=== PATIENT | female | born 1975 | race African-American/Black ===

== ENCOUNTER 2017-06-10 08:16 | Day surgery (SDC) | payer BC ==
[2017-06-08 11:18] VITALS: BMI 20.9
[2017-06-10] MEDS ORDERED: LIDOCAINE HCL 1%, 10 MG/ML (20ML VIAL) ONE (09:37)
[2017-06-10] MEDS ORDERED: BUPIVACAINE HCL/PF 0.5% (5MG/ML) 10 ML VIAL ONE (09:38)
[2017-06-10] MEDS ORDERED: DEXAMETHASONE SOD PHOSPHATE 4 MG/1 ML VIAL ONE ×2 (09:38→10:39)
[2017-06-10] MEDS ORDERED: MIDAZOLAM HCL 2 MG/2 ML SINGLE DOSE VIAL ONE ×3 (10:18→11:28)
[2017-06-10] MEDS ORDERED: KETOROLAC TROMETHAMINE 30 MG/1 ML VIAL ONE (10:39)
[2017-06-10] MEDS ORDERED: PROPOFOL 20 ML ONE (10:39)
[2017-06-10] MEDS ORDERED: ceFAZolin SODIUM 1 GM VIAL ONE (10:40)
[2017-06-10] MEDS ORDERED: ceFAZolin SODIUM 1 GM VIAL IVPB ONE (10:44)
[2017-06-10] MEDS ORDERED: PROMETHAZINE HCL 25 MG/1 ML VIAL IVPUSH PRN (12:25)
[2017-06-10] MEDS ORDERED: ONDANSETRON 4 MG/2 ML VIAL IVPUSH PRN (12:25)
[2017-06-10] MEDS ORDERED: oxyCODONE HCL 5 MG TABLET PO PRN (12:25)
[2017-06-10 13:16] VITALS: TEMP 98
[2017-06-10 13:26] VITALS: PULSE 70
[2017-06-10 15:37] VITALS: BP 139/70
--- NOTE | 2017-06-14 06:13 | OP ---
DATE OF OPERATION: 06/10/2017 SURGEON: Laxmi Bell DPM SIZE TESTER: Yovani Portillo DPM and Jose Deluna, PGY-3 PREOPERATIVE DIAGNOSES: 1. Bunion deformity, right foot. 2. Hammertoe deformity of 2nd digit through 5th digit, right foot. POSTOPERATIVE DIAGNOSES: 1. Bunion deformity, right foot. 2. Hammertoe deformity of 2nd digit through 5th digit, right foot. PROCEDURE: 1. Right foot Aki bunionectomy. 2. Arthroplasty of proximal interphalangeal joint, 2nd digit through 5th digit, right foot. ANESTHESIA: IV with MAC. HEMOSTASIS: Pneumatic right ankle tourniquet at 250 mmHg. ESTIMATED BLOOD LOSS: Less than 5 mL. MATERIAL: All non-dyed 2-0 Vicryl, 3-0 Vicryl, 4-0 Monocryl, 4-0 nylon sutures. OsteoMed 2.4 x 60 mm partially-threaded cortical screw. INJECTABLE: Preoperative injection of 18 mL of 1:1 mix of 1% lidocaine plain and 0.5% Marcaine plain. Postoperative injection 2 mL of dexamethasone 4 g/mL and 8 mL of 0.5% Marcaine plain mix. COMPLICATIONS: None. CONDITION: Stable. DESCRIPTION OF PROCEDURE: The patient was brought to the operating room and placed supine on the operating table. One gram of Ancef was then administered intravenously for prophylaxis. After adequate IV sedation was obtained, a local infiltrative block was then administered to the right foot utilizing a 1:1 mix of 1% lidocaine plain and 0.5% Marcaine plain. A total of 15 mL was used. The right foot was then prepped and draped in the usual aseptic fashion. Upon exsanguination of the right foot with an Esmarch bandage and placement of padding at the ankle, pneumatic ankle tourniquet was inflated to 250 mmHg. Attention was directed to the right 1st metatarsophalangeal joint where a linear longitudinal incision was made extending from the neck of the 1st metatarsal to the head of the base of the proximal phalanx of the hallux. Care was taken throughout dissection to avoid damage to neurovascular or tendinous structures. The incision was deepened via sharp dissection to the level of the capsule. The capsule was incised in a T-type fashion, and capsular structures were reflected. Using a periosteal elevator, the periosteum over the head of the 1st metatarsal also reflected. Utilizing sharp instrument, a release of the contracture of the lateral structure of the 1st MPJ and base of the proximal phalanx of the hallux was then performed in standard fashion. Attention was directed back to the medial 1st metatarsal head where the medial prominence of the metatarsal head was resected using a sagittal saw. Next, in a moderate-size chevron osteotomy fashion, a sagittal plane V-type osteotomy was made in the metatarsal head with the apex of the V being at the thickest portion of the metatarsal head with a slightly longer plantar arm of the osteotomy. The distal fragment was then shifted laterally until adequate correction of the intermetatarsal angle was noted on fluoroscopy. A K-wire was used to hold the osteotomy temporarily, and a 2.4 x 60 mm OsteoMed screw which was washed in a mix of normal saline with antibiotic solution prior, was placed using standard lag technique to permanently fixate the osteotomy. Using the sagittal saw, the medial shaft was resected, and bur was used to smooth down all remaining prominences. During closure of the capsule, a medial capsulorrhaphy was performed. Fluoroscopy verified the proper placement of hardware as well as correction of the previous bunion deformity. At this time, surgical site was irrigated with copious amount of normal saline solution with antibiotic. Next, 2-0 Vicryl was used to close the capsule; 3-0 Vicryl was used to reapproximate the subcutaneous layers; 4-0 Monocryl was used to reapproximate the skin in subcuticular-suture technique. Attention was now directed to the right 2nd digit where an incision was placed in the dorsal aspect of the digit. The incision was carried to the level of the proximal interphalangeal joint. The extensor tendon was also transected, and the head of the proximal phalanx was resected with oscillating saw. The surgical site was then flushed with copious amount of normal saline solution with antibiotic. The extensor tendon was repaired with 3-0 Vicryl, and 4-0 nylon was used to close the skin in simple-suture technique. This was noted to give great reduction of the right 2nd digit hammer deformity. The same surgical approach was implemented on the right 3rd, 4th, and 5th digit. At this time, tincture of benzoin was applied near the incision site of the 1st metatarsal, and Steri-Strips were applied. Next, 2 mL of dexamethasone 4 g per mL and 8 mL of 0.5% Marcaine plain mix were injected near the surgical site as postoperative injection. The incisions were then dressed with Betadine-soaked Adaptic. A sterile compressive dressing consisting of 4 x 4's, Nathalie, and Fadi bandage were applied. The pneumatic ankle tourniquet was then deflated, and a prompt hyperemic response was noted to all digits of the right foot. The patient tolerated the procedure and the anesthesia well and left the operating room to the recovery room in good condition with vital signs stable and neurovascular status intact. Capillary filling time was less than 3 seconds to all digits of the right foot. PATRICIA Joyce/[id number]
--- NOTE | 2017-06-14 18:40 | PATH ---
Surgical Pathology Report Patient Name: JENNIFER QUINONES [facility]. Rec. #: [id number] /Age/Gender: 1975 (Age: 42) / F Account: [id number] Location: [facility] SURGICAL Taken: 06/10/2017 Received: 06/10/2017 Reported: 06/14/2017 Physicians: Laxmi Bell DPM Specimen(s) Received BONE AND TISSUE RIGHT FOOT Clinical History Bunion and hammertoes second, third, fourth and fifth right Final Diagnosis BONE AND SOFT TISSUE, FOOT, RIGHT, BUNIONECTOMY AND REPAIR: BONE WITH DEGENERATIVE CHANGES. SKIN WITHOUT SIGNIFICANT PATHOLOGIC FINDINGS. Electronically Signed Corina Cuenca M.D. Gross Description Received in formalin labeled "right foot bone and soft tissue," is a 3.0 x 2.5 x 0.4 cm aggregate of abundant irregular fragmented portions of bone. Also received within the same container is a 2.4 x 1.3 cm aggregate of multiple boone, irregular portions of skin. Marketing Mgr sections are submitted in one cassette, following decalcification. 06/13/201706/13/2017
== END 2017-06-10 15:00 | disposition home or self-care (01) ==
LOC: JASU-SURG 08:16
PROVIDERS: ATTEND Podiatrist Foot Surgery
PROC: 0SRP0JZ Replacement of Right Toe Phalangeal Joint with Synthetic Substitute, Open Approach (ICD-10-PCS; principal; 2017-06-10 10:00)
PROC: 0QSN0ZZ Reposition Right Metatarsal, Open Approach (ICD-10-PCS; 2017-06-10 10:00)
DX: M21.611 Bunion of right foot (principal); M20.41 Other hammer toe(s) (acquired), right foot
CPT/HCPCS: 73630-TC-RT; 84703; 88304-TC; 88311-TC; 94760; 97116-GP

== ENCOUNTER 2017-06-24 07:43 | Day surgery (SDC) | payer BC ==
[2017-06-23 13:41] VITALS: BMI 20.9
[2017-06-24] MEDS ORDERED: MIDAZOLAM HCL 2 MG/2 ML SINGLE DOSE VIAL ONE (10:59)
[2017-06-24] MEDS ORDERED: ceFAZolin SODIUM 1 GM VIAL IVPB ONE (11:39)
[2017-06-24] MEDS ORDERED: LIDOCAINE HCL 1%, 10 MG/ML (20ML VIAL) ONE (11:41)
[2017-06-24] MEDS ORDERED: methylPREDNISolone ACET (DEPO) 40 MG/1 ML VIAL ONE (11:41)
[2017-06-24] MEDS ORDERED: BUPIVACAINE HCL/PF 0.5% (5MG/ML) 10 ML VIAL ONE (11:42)
[2017-06-24] MEDS ORDERED: DEXAMETHASONE SOD PHOSPHATE 4 MG/1 ML VIAL ONE (11:43)
[2017-06-24] MEDS ORDERED: BACITRACIN 50,000 UNITS VIAL NR ONE (12:28)
[2017-06-24] MEDS ORDERED: BUPIVACAINE HCL/PF 0.5% (5MG/ML) 10 ML VIAL IJ ONE (12:29)
[2017-06-24] MEDS ORDERED: oxyCODONE HCL 5 MG TABLET PO PRN (12:59)
[2017-06-24] MEDS ORDERED: PROMETHAZINE HCL 25 MG/1 ML VIAL IVPUSH PRN (12:59)
[2017-06-24] MEDS ORDERED: ONDANSETRON 4 MG/2 ML VIAL IVPUSH PRN (12:59)
[2017-06-24] MEDS ORDERED: LACTATED RINGERS SOLUTION 1,000 ML IV SCH (13:00)
[2017-06-24 14:16] VITALS: TEMP 97.6
[2017-06-24 18:56] VITALS: BP 127/79; PULSE 74
--- NOTE | 2017-06-29 15:47 | PATH ---
Surgical Pathology Report Patient Name: JENNIFER QUINONES [facility]. Rec. #: [id number] /Age/Gender: 1975 (Age: 42) / F Account: [id number] Location: [facility] SURGICAL Taken: 06/24/2017 Received: 06/24/2017 Reported: 06/29/2017 Physicians: Laxmi Bell DPM Specimen(s) Received LEFT FOOT BONE Clinical History Second, third, fourth hammertoes left foot, bunion left foot Final Diagnosis BONE, LEFT, BUNIONECTOMY: CARTILAGE-CAPPED BONE WITH NO PATHOLOGIC FINDINGS. Electronically Signed uJdy Damon M.D. Gross Description Received in formalin labeled "left foot bone," are 4 boone, irregular portions of bone ranging from 0.9 x 0.6 x 0.5 cm to 1.5 x 1.5 x 0.4 cm. Hand Quilter sections are submitted in one cassette, following decalcification. 06/27/201706/27/2017
--- NOTE | 2017-07-04 09:33 | OP ---
DATE OF OPERATION: PREOPERATIVE DIAGNOSES: 1. Left foot hallux abductovalgus deformity. 2. Left 2nd hammer toe deformity. 3. Hammer digits left 3rd digit. 4. Left 4th hammer toe. POSTOPERATIVE DIAGNOSES: 1. Left foot hallux abductovalgus deformity. 2. Left 2nd hammer toe deformity. 3. Hammer digits left 3rd digit. 4. Left 4th hammer toe. PROCEDURES: 1. Modified Viveros bunionectomy, left foot. 2. Arthroplasty of the 2nd digit, left foot. 3. Left 3rd digit arthroplasty. 4. Left 4th digit arthroplasty. ANESTHESIA: MAC with local infiltration. HEMOSTASIS: Pneumatic ankle tourniquet at 250 mmHg. ESTIMATED BLOOD LOSS: Minimal. SURGEON: Dr. Portillo HOSPITAL SUPERVISOR: Laxmi Bell DPM and DESCRIPTION OF PROCEDURE: The procedure started with the patient brought to the operating room and placed supine position on the operating room table. Pneumatic ankle tourniquet was applied to the patient's left ankle. MAC sedation was achieved with local infiltrative block used with 1:1 mix of 1% lidocaine plain and 5% Marcaine plain. A total of 20 mL was used. The left foot was then prepped and draped in the usual aseptic manner. Esmarch bandage was applied to exsanguinate the left foot, and tourniquet was inflated to 250 mmHg. Attention was directed to the dorsal aspect of the 1st metatarsal head of the right foot where a linear longitudinal incision was made over the medial aspect of the 1st metatarsal head. The incision was then deepened through subcutaneous tissue using sharp and blunt dissection. Care was taken to identify and retract all neurovascular structures, and all bleeders were cauterized as necessary. At this time, a linear capsulotomy was performed over the dorsal aspect of the 1st metatarsal head. The periosteal and capsular structures were then carefully dissected free of the osseous attachments and reflected medially and laterally exposing the head of the 1st metatarsal head. Using a sagittal bone, the prominent dorsomedial head off and on the 1st metatarsal was resected and pulled from the operative field. At this time, attention was directed to the first interspace, and the lateral contractor present on the proximal phalanx base was released using No. 15 blade. At this time, the operative site was flushed with normal saline solution, and the periosteal and capsular structures were reapproximated using 3-0 Vicryl. The skin was closed using 4-0 nylon. Attention was then directed to the 2nd digit of the left foot where a linear semielliptical incision was made dorsal to the PIPJ. Incision was deepened through the subcutaneous tissue with care being taken to identify and retract all vital neurovascular structures. All bleeders were cauterized and ligated as necessary. At this time, a transverse tenotomy was performed to the proximal phalanx interphalangeal joint of the left 2nd digit. The head of the proximal phalanx was then feed of its capsular and ligamentous attachments. Next, using an oscillating bone saw, the head of the proximal phalanx was resected and passed from the operative site. The wound was then irrigated with copious amounts of sterile saline solution, and the extensor tendon was then reapproximated with 3-0 Vicryl sutures. The skin was reapproximated using 4-0 nylon sutures in simple interrupted fashion. Similar procedures were then performed on the 3rd and 4th digits of the left foot. At this time, the surgical sites were then dressed with Betadine, Adaptic, sterile 4 x 4s, Nathalie, and Fadi. At this time, the tourniquet was deflated, and a prompt hyperemic response was noted to all digits of the left foot. The patient tolerated the procedure and the anesthesia well and left the operating room to PACU in good candidate with vital signs stable and neurovascular status intact to left foot. PATRICIA Joyce/[id number]
== END 2017-06-24 15:30 | disposition home or self-care (01) ==
LOC: JASU-SURG 07:43
PROVIDERS: ATTEND Podiatrist Foot Surgery
PROC: 0QSP0ZZ Reposition Left Metatarsal, Open Approach (ICD-10-PCS; principal; 2017-06-24 09:20)
PROC: 0SRQ0JZ Replacement of Left Toe Phalangeal Joint with Synthetic Substitute, Open Approach (ICD-10-PCS; 2017-06-24 09:20)
DX: M20.42 Other hammer toe(s) (acquired), left foot (principal); M20.12 Hallux valgus (acquired), left foot; M21.612 Bunion of left foot
CPT/HCPCS: 73630-TC-LT; 73630-TC-RT; 84703; 88304-TC; 88311-TC; 94760

== ENCOUNTER 2017-12-21 13:26 | Observation (INO) | payer BC ==
[2017-12-21 13:34] VITALS: BMI 20.9
--- NOTE | 2017-12-21 15:04 | PDOC ---
History of Present Illness - General History Source: Patient Exam Limitations: No Limitations - History of Present Illness Initial Comments: 12/21/17 15:20 The patient is a 42-year-old female, with no past medical history, who was sent to the ED from her PCPs office for right-side head pain, right eye swelling, and dizziness. The patient is normally followed by Dr. Hood, but today she was seen by Dr. Johnson because Sana is on vacation. The patient states that she was cleaning her bathtub 3 weeks ago, lost her footing, and hit the right-side of her head on the wall. Initially, the patient had no symptoms but 4 days ago she developed a right-sided headache and dizziness. She decided to visit the [facility] Emergency Department and had a CT of the orbits and head taken with no contrast; the reports came back normal. The following day, the patient developed right eye swelling. On exam, the patient states that she is experiencing pain with extraocular motion and a low-grade fever. She reports taking Tylenol yesterday with no relief of her symptoms. The patient denies any nausea or vomiting. She denies any blurred vision or diplopia. PCP: Dr. Hood <Lana Tripp - Last Filed: 12/21/17 16:37> - General History Source: Patient Exam Limitations: No Limitations <Jailyn Llamas - Last Filed: 12/21/17 19:32> - General Chief Complaint: Headache Stated Complaint: INJURY Time Seen by Provider: 12/21/17 14:14 Past History <Lana Tripp - Last Filed: 12/21/17 16:37> - Past Medical History Anemia: No Asthma: No Cancer: No Cardiac Disorders: No CVA: No COPD: No CHF: No Dementia: No Diabetes: No GI Disorders: No Disorders: No HTN: No Hypercholesterolemia: No Liver Disease: No Seizures: No Thyroid Disease: No - Reproductive History (#): 6 Para: 0 Therapeutic (s) & number: Yes (1) Spontaneous : 4 - Suicide/Smoking/Psychosocial Hx Smoking History: Never smoked Have you smoked in the past 12 months: Yes Number of Cigarettes Smoked Daily: 4 'Breaking Loose' booklet given: 06/24/17 Hx Alcohol Use: No Drug/Substance Use Hx: No Substance Use Type: None Hx Substance Use Treatment: No <Jailyn Llamas - Last Filed: 12/21/17 19:32> - Past Medical History Allergies/Adverse Reactions: Allergies Allergy/AdvReac Type Severity Reaction Status Date / Time No Known Allergies Allergy Verified 12/21/17 13:34 Home Medications: Ambulatory Orders Ibuprofen [Motrin -] 600 mg PO TID PRN 06/23/17 Review of Systems - Review of Systems Able to Perform ROS?: Yes Comments:: 12/21/17 15:21 GENERAL/CONSTITUTIONAL: (+)fever. No chills. No weakness. HEAD, EYES, EARS, NOSE AND THROAT: (+)right eye swelling, pain with extraoccular motion of her right eye. No change in vision. No ear pain or discharge. No sore throat. CARDIOVASCULAR: No chest pain or shortness of breath. RESPIRATORY: No cough, wheezing, or hemoptysis. GASTROINTESTINAL: No nausea, vomiting, diarrhea or constipation. GENITOURINARY: No dysuria, frequency, or change in urination. MUSCULOSKELETAL: No joint or muscle swelling or pain. No neck or back pain. SKIN: No rash NEUROLOGIC: (+)Headache, dizziness. No vertigo, loss of consciousness, or change in strength/sensation. ENDOCRINE: No increased thirst. No abnormal weight change. HEMATOLOGIC/LYMPHATIC: No anemia, easy bleeding, or history of blood clots. ALLERGIC/IMMUNOLOGIC: No hives or skin allergy. <Lana Tripp - Last Filed: 12/21/17 16:37> *Physical Exam - Vital Signs Last Vital Signs Temp Pulse Resp BP Pulse Ox 98.2 F 75 20 118/71 100 12/21/17 13:28 12/21/17 13:28 12/21/17 13:28 12/21/17 13:28 12/21/17 13:28 - Physical Exam Comments: 12/21/17 15:22 GENERAL: Awake, alert, and fully oriented, in no acute distress HEAD: No signs of trauma EYES: PERRLA, EOMI, sclera anicteric, conjunctiva clear Head:(+)Tenderness over right temporal region. ENT:(+)TMs bilaterally are excluded with wax, right upper eyelid swollen with erythema. Extraocular motions are symmetric, nares patent, oropharynx clear without exudates. Moist mucosa. NECK: Normal ROM, supple, no lymphadenopathy, JVD, or masses LUNGS: Breath sounds equal, clear to auscultation bilaterally. No wheezes, and no crackles HEART: Regular rate and rhythm, normal S1 and S2, no murmurs, rubs or gallops ABDOMEN: Soft, nontender, normoactive bowel sounds. No guarding, no rebound. No masses EXTREMITIES: Normal range of motion, no edema. No clubbing or cyanosis. No cords, erythema, or tenderness NEUROLOGICAL: Alert and oriented x3. 5/5 in all extremities, Cranial nerves 2- 13 intact, speech is clear. SKIN: (+)Right upper eyelid erythema and swelling (see above). Warm, Dry, normal turgor. <Lana Tripp - Last Filed: 12/21/17 16:37> - Vital Signs Last Vital Signs Temp Pulse Resp BP Pulse Ox 98.2 F 75 20 118/71 100 12/21/17 13:28 12/21/17 13:28 12/21/17 13:28 12/21/17 13:28 12/21/17 13:28 <Jailyn Llamas - Last Filed: 12/21/17 19:32> ED Treatment Course - LABORATORY CBC & Chemistry Diagram: 12/21/17 16:00 12/21/17 16:00 - RADIOLOGY Radiology Studies Ordered: Category Date Time Status HEAD CT WITHOUT CONTRAST [CT] Stat CT Scan 12/21/17 14:46 Ordered <Jailyn Llamas - Last Filed: 12/21/17 19:32> *DC/Admit/Observation/Transfer - Attestations Scribe Attestion: 12/21/17 15:23 Documentation prepared by Lana Tripp, acting as medical technicians for Jailyn Llamas MD. <Lana Tripp - Last Filed: 12/21/17 16:37> - Discharge Dispostion Decision to Admit order: Yes <Jailyn Llamas - Last Filed: 12/21/17 19:32> Diagnosis at time of Disposition: Headache - Referrals Referrals: René Hood MD [Primary Care Provider] - - Patient Instructions - Post Discharge Activity
[2017-12-21 16:44] LABS: BASO % 0.7 % (0-2.0); EOS % 1.1 % (0-4.5); HEMATOCRIT 39.6 % (32.4-45.2); LYMPH % 27.8 % (8-40); MCH 29.1 pg (25.7-33.7); MCHC 32.9 g/dl (32.0-36.0); MEAN CELL VOLUME 88.6 fl (80-96); MEAN PLT VOLUME 9.4 fl (7.5-11.1); MONO % 9.9 % (3.8-10.2); NEUT % 60.5 % (42.8-82.8); PLATELET COUNT 190 K/MM3 (134-434); RBC 4.47 M/mm3 (3.60-5.2); RDW 12.2 % (11.6-15.6); WHITE BLOOD COUNT 6.7 K/mm3 (4.0-10.0)
[2017-12-21 17:09] LABS: ALBUMIN 3.3 g/dl (3.4-5.0); ANION GAP 4 (8-16); BLOOD UREA NITROGEN 8 mg/dL (7-18); CALCIUM 8.3 mg/dL (8.5-10.1); CHLORIDE 104 mmol/L (98-107); CO2 29 mmol/L (21-32); CREATININE 0.8 mg/dL (0.55-1.02); GLUCOSE,RANDOM 115 mg/dL (74-106); POTASSIUM 3.4 mmol/L (3.5-5.1); SGOT/AST 13 U/L (15-37); SODIUM 137 mmol/L (136-145)
[2017-12-21 17:22] LABS: ALK PHOS 54 U/L (45-117); BILIRUBIN,TOTAL 0.5 mg/dL (0.2-1.0); SGPT/ALT 18 U/L (12-78); TOT PROT 7.2 g/dl (6.4-8.2)
[2017-12-21] MEDS ORDERED: ACETAMINOPHEN 1000 MG/100 ML VIAL (NON FORMULARY) IVPB ONE (17:26)
[2017-12-21] MEDS ORDERED: SODIUM CHLORIDE 0.9% 1000 ML INFUS.BAG IV ONE (17:26)
[2017-12-21] MEDS ORDERED: CLINDAMYCIN 900 MG PREMIX IVPB 900 MG/50 ML BAG IVPB ONE ×3 (19:02→19:50)
[2017-12-21] MEDS ORDERED: ACETAMINOPHEN INJECTION 100 ML IVPB ONE (19:49)
[2017-12-21 20:12] LABS: COCAINE, UR NEGATIVE ng/ml (CUTOFF=300); URINE AMPHETAMINES NEGATIVE ng/ml (CUTOFF=500); URINE BARBITURATES NEGATIVE ng/ml (CUTOFF=200); URINE BENZODIAZEPINES NEGATIVE ng/ml (CUTOFF=200)
[2017-12-21 20:13] LABS: METHADONE, UR NEGATIVE ng/ml (CUTOFF=300); OPIATES, URI NEGATIVE ng/ml (CUTOFF=300); PHENCYCLIDINE,URINE NEGATIVE ng/ml (CUTOFF=25)
--- NOTE | 2017-12-21 21:14 | HP ---
CHIEF COMPLAINT: eye pain PCP: Dr. Hood HISTORY OF PRESENT ILLNESS: 42 year old female with no significant past medical history presents with 3 day hx of R eye pain. She reports that she hit her R side of the head after a minor fall 3 weeks ago on November 30 where she hit her R side. She denies any subsequent pain until December 17, when she was driving her van and began to feel 7/10 pain in her R lutheran and R orbit. She states that the pain progressed to involve pain when she moved her R eye as well as swelling. She went to [facility] ER the very first day and had a CT head which was negative and patient was discharged only on pain medications. Her pain continued and she noticed a R eyelid droop. Reports occasional lightheadedness. Denies sick contacts. Denies fevers, chills, nausea, vomiting, diarrhea, chest pain, SOB, denies visual changes. Patient's mother is in the room and states that 10 years ago, she had an "eye problem" that she cannot remember. ER course was notable for: (1) K 3.4 (2) CT orbit shows R sided possible partial cavernous sinus thrombosis, no evidence of trauma (3) Recent Travel: none PAST MEDICAL HISTORY: -6 abortions, 1 miscarriage -"eye problem" 10 years ago PAST SURGICAL HISTORY: - section 2013 Social History: Smokin-2 cigs/day many years Alcohol: socially Drugs: none Allergies No Known Allergies Allergy (Verified 12/21/17 13:34) HOME MEDICATIONS: Home Medications Medication Instructions Recorded Ibuprofen [Motrin -] 600 mg PO TID PRN 06/23/17 REVIEW OF SYSTEMS CONSTITUTIONAL: Absent: fever, chills, diaphoresis, generalized weakness, malaise, loss of appetite, weight change HEENT: eye pain, Absent: rhinorrhea, nasal congestion, throat pain, throat swelling, difficulty swallowing, mouth swelling, ear pain, visual changes CARDIOVASCULAR: Absent: chest pain, syncope, palpitations, irregular heart rate, lightheadedness , peripheral edema RESPIRATORY: Absent: cough, shortness of breath, dyspnea with exertion, orthopnea, wheezing, stridor, hemoptysis GASTROINTESTINAL: Absent: abdominal pain, abdominal distension, nausea, vomiting, diarrhea, constipation, melena, hematochezia GENITOURINARY: Absent: dysuria, frequency, urgency, hesitancy, hematuria, flank pain, genital pain MUSCULOSKELETAL: Absent: myalgia, arthralgia, joint swelling, back pain, neck pain SKIN: Absent: rash, itching, pallor HEMATOLOGIC/IMMUNOLOGIC: Absent: easy bleeding, easy bruising, lymphadenopathy, frequent infections ENDOCRINE: Absent: unexplained weight gain, unexplained weight loss, heat intolerance, cold intolerance NEUROLOGIC: Absent: headache, focal weakness or paresthesias, dizziness, unsteady gait, seizure, mental status changes, bladder or bowel incontinence PSYCHIATRIC: Absent: anxiety, depression, suicidal or homicidal ideation, hallucinations. PHYSICAL EXAMINATION Vital Signs - 24 hr 12/21/17 13:28 Temperature 98.2 F Pulse Rate 75 Respiratory 20 Rate Blood Pressure 118/71 O2 Sat by Pulse 100 Oximetry (%) GENERAL: A&Ox3, no acute distress EYES: PERRLA, EOMI ENT: Moist mucus membranes NECK: No JVD LUNGS: CTA, no wheezes HEART: RRR, no murmurs ABDOMEN: Soft, nontender, BS present MUSCULOSKELETAL: No CVA Tenderness EXTREMITIES: 2+ pulses, no edema. NEUROLOGICAL: Cranial nerves II-XII intact. Laboratory Results - last 24 hr 12/21/17 12/21/17 12/21/17 14:59 16:00 16:00 WBC 6.7 RBC 4.47 Hgb 13.0 Hct 39.6 MCV 88.6 MCH 29.1 MCHC 32.9 RDW 12.2 Plt Count 190 MPV 9.4 Neutrophils % 60.5 Lymphocytes % 27.8 D Monocytes % 9.9 Eosinophils % 1.1 D Basophils % 0.7 Nucleated RBC % 0 ESR Sodium 137 Potassium 3.4 L Chloride 104 Carbon Dioxide 29 Anion Gap 4 L BUN 8 Creatinine 0.8 Creat Clearance w eGFR > 60 Random Glucose 115 H Calcium 8.3 L Total Bilirubin 0.5 D AST 13 L ALT 18 Alkaline Phosphatase 54 Total Protein 7.2 Albumin 3.3 L Urine HCG, Qual Negative Opiates Screen Methadone Screen Barbiturate Screen Phencyclidine Screen Ur Amphetamines Screen MDMA (Ecstasy) Screen Benzodiazepines Screen Cocaine Screen U Marijuana (THC) Screen Alcohol, Quantitative 12/21/17 12/21/17 12/21/17 16:00 16:00 19:30 WBC RBC Hgb Hct MCV MCH MCHC RDW Plt Count MPV Neutrophils % Lymphocytes % Monocytes % Eosinophils % Basophils % Nucleated RBC % ESR 16 Sodium Potassium Chloride Carbon Dioxide Anion Gap BUN Creatinine Creat Clearance w eGFR Random Glucose Calcium Total Bilirubin AST ALT Alkaline Phosphatase Total Protein Albumin Urine HCG, Qual Opiates Screen Negative Methadone Screen Negative Barbiturate Screen Negative Phencyclidine Screen Negative Ur Amphetamines Screen Negative MDMA (Ecstasy) Screen Negative Benzodiazepines Screen Negative Cocaine Screen Negative U Marijuana (THC) Screen Positive Alcohol, Quantitative < 5.0 ASSESSMENT/PLAN: 42 year old female with no significant past medical history presents to the hospital for R sided facial pain, R eye pain and headache and is admitted for observation #R Sided Face/Eye Pain: unlikely orbital cellulitis, but CT orbit suggested possible R sided cavernous sinus thrombosis, small amount of fluid in ethmoid air cells, mild R maxillary and minimal R sphenoid mucosal thickening seen. -CT head negative for hemorrhage or acute pathology, but CT orbit as above. -neuro consult appreciated Dr. Vasquez -MRI brain and orbit ordered -ESR 16, normal -tox screen positive for marijuana -tylenol for pain -monitor vitals #Hypokalemia: patient's potassium 3.4 -give 1 Kdur 40 -recheck BMP in AM #FEN NS @ 100cc/hr 1 bag Replete potassium Regular diet #Prophylaxis -early ambulation #Disposition Admit medsurg obs Visit type - Emergency Visit Emergency Visit: Yes Care time: The patient presented to the Emergency Department on the above date and was hospitalized for further evaluation of their emergent condition. - New Patient This patient is new to me today: Yes Date on this admission: 12/21/17 - Critical Care Critical Care patient: No Hospitalist Screening - Colonoscopy Questionnaire Colonoscopy Questionnaire: Colonoscopy Questionnaire - Patient: 50 - 75 years old and never had a screening colonoscopy: Unknown History of colon or rectal polyps, or CA: Unknown History of IBD, Crohn's disease or UC: Unknown History of abdominal radiation therapy as a child: Unknown - Relative: 1 with colon or rectal CA, or polyps at age 60 or younger: Unknown Colon or rectal CA diagnosed at age 45 or younger: Unknown Multiple relatives with colon or rectal CA: Unknown - Outcome: Screening Result: Negative Screen
[2017-12-21] MEDS ORDERED: POTASSIUM CHLORIDE TABS 20 MEQ TABLET.ER (FP) PO ONE (21:58)
--- NOTE | 2017-12-21 22:10 | PN ---
Teaching Attending Note Name of Resident: Mayco Roberts ATTENDING PHYSICIAN STATEMENT I saw and evaluated the patient. Chart, data, imaging reviewed. I reviewed the resident's note and discussed the case with the resident. I agree with the resident's findings and plan as documented. SUBJECTIVE: 42 year old woman with no significant past medical history c/o right sided headache and right sided eye pain for 4 days. She says that 3 weeks ago she bumped her right side of head. Immediately after felt no pain or dizziness. Denied any recent nausea or vomiting. Pt evaluated in [facility] ER and had head CT wnl. Denied any fevers or any other trauma to head. OBJECTIVE: Last Vital Signs Temp Pulse Resp BP Pulse Ox 98.2 F 75 20 118/71 100 12/21/17 13:28 12/21/17 13:28 12/21/17 13:28 12/21/17 13:28 12/21/17 13:28 general- nad, aaox3 heent- cranial nerves 3-12 intact grossly, no facial tenderness neck -no jvd, supple, no masses cv-s1+s2+rrr chest - cta b/l skin -no rashes appreciated Abnormal Lab Results 12/21/17 16:00 Potassium 3.4 L Anion Gap 4 L Random Glucose 115 H Calcium 8.3 L AST 13 L Albumin 3.[address] reviewed -no acute bleed or infarct ASSESSMENT AND PLAN: #Headache- no focal neurological symptoms. No evidence of any infections. Head CT with no acute findings but will r/o cavernous thombosis with MRI. -observation -EKG -tylenol po prn for pain -zofran iv prn for nausea/vomiting -neurology evaluation -heparin sc for dvt ppx
[2017-12-22 07:32] LABS: HEMATOCRIT 34.2 % (32.4-45.2); HEMOGLOBIN 11.5 GM/dL (10.7-15.3); MCH 29.7 pg (25.7-33.7); MCHC 33.6 g/dl (32.0-36.0); MEAN CELL VOLUME 88.4 fl (80-96); PLATELET COUNT 186 K/MM3 (134-434); RBC 3.87 M/mm3 (3.60-5.2); RDW 12.1 % (11.6-15.6); WHITE BLOOD COUNT 4.5 K/mm3 (4.0-10.0)
[2017-12-22 07:57] LABS: ANION GAP 5 (8-16); CALCIUM 7.9 mg/dL (8.5-10.1); CHLORIDE 108 mmol/L (98-107); CO2 27 mmol/L (21-32); GLUCOSE,RANDOM 95 mg/dL (74-106); MAGNESIUM 2.3 mg/dL (1.8-2.4); SODIUM 140 mmol/L (136-145)
[2017-12-22 07:58] LABS: CREATININE 0.7 mg/dL (0.55-1.02); PHOSPHOROUS 3.4 mg/dL (2.5-4.9)
[2017-12-22 08:00] LABS: BLOOD UREA NITROGEN 5 mg/dL (7-18)
[2017-12-22] MEDS ORDERED: ACETAMINOPHEN 325 MG TABLET (FP) ONE (13:22)
[2017-12-22] MEDS: ACETAMINOPHEN 325 MG TABLET (FP) PO PRN (13:24)
--- NOTE | 2017-12-22 15:54 | PN ---
Teaching Attending Note Name of Resident: Joy Agarwal ATTENDING PHYSICIAN STATEMENT I saw and evaluated the patient. I reviewed the resident's note and discussed the case with the resident. I agree with the resident's findings and plan as documented. SUBJECTIVE:continues to have R sided FLOREZ. it is continous with alleviating or exacerbating factors. some eye discomfort when looking to the R in the same eye. states shes had these symptoms from hitting her head earlier this month. noted some swelling and erythema to the eye yesterday which has now resolved. denies CP, SOB, fever, chills, blurred vision, photophobia, halo sensation. OBJECTIVE: Last Vital Signs Temp Pulse Resp BP Pulse Ox 97.7 F 76 18 101/59 100 12/22/17 05:53 12/22/17 05:53 12/22/17 05:53 12/22/17 05:53 12/22/17 02:56 General NAD HEENT mild swelling of the R upper eyelid. no erythema, EOMI, PERRL, very mild ptosis R eye. CV S1 S2 RRR no murmur/rub/gallop Lungs CTA B/L no wheezing/rales/rhonchi Neuro CN III-XII grossly intact, sensation and strength equal in all 4 extremities ASSESSMENT AND PLAN: 42yo F wtih no PMH who presented to the ER with R sided head ache and eye pain after striking her head 1. R sided FLOREZ- initial Head CT showing concern for R cavernous sinus thrombosis. will need MRI/MRA to further evaluate. low suspicion given clinical presentation. f/u neuro consult 2. Hypokalemia- resolved 3. DVT ppx- EAM 4. spoke with patient and mother present at bedside. discussed current plan. possible d/c home pending results of MRI
--- NOTE | 2017-12-22 21:37 | PN ---
Physical Exam: SUBJECTIVE: Patient seen and examined. No fevers overnight. Pending MRI to R/O thrombosis of the cavernous sinus. OBJECTIVE: Vital Signs Period Temp Pulse Resp BP Sys/Hernandez Pulse Ox Last 24 Hr 97.7 F-98.2 F 68-797 17-18 100-113/58-70 100-100 Vital Signs Temp 98.1 F 12/22/17 18:00 Pulse 68 12/22/17 18:00 Resp 18 12/22/17 18:00 BP 102/64 12/22/17 18:00 Pulse Ox 100 12/22/17 09:00 Intake & Output 12/21/17 12/22/17 12/22/17 23:59 11:59 23:59 Intake Total 900 490 Balance 900 490 Weight 58.967 kg 58.967 kg Intake: IVPB 10 Oral 600 480 CBI Intake 300 Other: Voiding Method Toilet # Unmeasured Voids Void 3 Bowel Movement No Height 1.68 m 1.68 m Body Mass Index (BMI) 20.9 20.9 Weight Measurement Method Est/Stated by Patient GENERAL: The patient is awake, alert, and fully oriented, in no acute respiratory distress. HEAD: Normal with no signs of trauma. EYES: Mild R upper eyelid swelling and ptosis. No conjuctival injection, no eye discharge. Extra ocular muscles intact, no photophobia. LUNGS: Breath sounds equal, clear to auscultation bilaterally HEART: Regular rate and rhythm, S1, S2 ABDOMEN: Soft, nontender, nondistended, normoactive bowel sounds EXTREMITIES: 2+ pulses, warm, well-perfused, no edema. NEUROLOGICAL: Cranial nerves II through XII grossly intact. Normal speech, no lateralizing signs. Muscle strength 5/5 globally. Laboratory Results - last 24 hr 12/22/17 12/22/17 06:20 07:10 WBC 4.5 D RBC 3.87 Hgb 11.5 D Hct 34.2 MCV 88.4 MCH 29.7 MCHC 33.6 RDW 12.1 Plt Count 186 MPV 9.0 Sodium 140 Potassium 4.0 Chloride 108 H Carbon Dioxide 27 Anion Gap 5 L BUN 5 L Creatinine 0.7 Random Glucose 95 Calcium 7.9 L Phosphorus 3.4 Magnesium 2.3 Active Medications Generic Name Dose Route Start Last Admin Trade Name Freq PRN Reason Stop Dose Admin Acetaminophen 650 mg 12/21/17 21:58 12/22/17 13:24 Tylenol - PO 650 mg Q4H PRN Administration HEADACHE ASSESSMENT/PLAN: 42 year old female with no significant PMHx presents to the hospital for R sided facial pain, R eye pain and headache #R Sided Face/Eye Pain: unlikely orbital cellulitis, but CT orbit suggested possible R sided cavernous sinus thrombosis, small amount of fluid in ethmoid air cells, mild R maxillary and minimal R sphenoid mucosal thickening seen. -CT head negative for hemorrhage or acute pathology, but CT orbit as above. -neuro consult D/W Dr. Vasquez- thinks the trauma of 3 weeks earlier is unrelated to the headache. He thinks the delfina-cranial headache is more likely to be a migraine for which she should follow as an outpatient -MRI brain and orbit pending -ESR 16, normal -tox screen positive for marijuana -tylenol for pain -monitor vitals -CBC #Hypokalemia: patient presented with potassium 3.4 -resolved with Kdur 40meq -Monitor #FEN: PO fluids Monitor lytes and replete as needed Regular diet #PPx Early ambulation #Dispo: Follow MRI For likely D/C if normal Visit type - Emergency Visit Emergency Visit: Yes ED Registration Date: 12/21/17 Care time: The patient presented to the Emergency Department on the above date and was hospitalized for further evaluation of their emergent condition. - New Patient This patient is new to me today: Yes Date on this admission: 12/22/17 - Critical Care Critical Care patient: No - Discharge Referral Referred to [facility] Med P.C.: No
[2017-12-23] MEDS: ACETAMINOPHEN 325 MG TABLET (FP) PO PRN (06:03)
[2017-12-23 07:46] VITALS: BP 97/60; PULSE 62; TEMP 98.1
[2017-12-23] MEDS ORDERED: POLYETHYLENE GLYCOL 3350 119 GM BTL PO ONE (08:45)
--- NOTE | 2017-12-23 10:04 | DS ---
Physical Exam: SUBJECTIVE: Patient seen and examined. Headache improved. No longer sharp, now dull. No pain on eye movement. Awaiting MRI result. OBJECTIVE: Vital Signs Period Temp Pulse Resp BP Sys/Hernandez Pulse Ox Last 24 Hr 98.0 F-98.7 F 60-797 17-20 97-118/58-65 100 PHYSICAL EXAM GENERAL: The patient is awake, alert, and fully oriented, in no acute distress. HEAD: Normal with no signs of trauma. EYES: R eye swelling resolved. PERRL, extraocular movements intact, normal vision. No conjuctival injection, no pain on movement of the eye. ENT: nares patent, oropharynx clear without exudates, moist mucous membranes. No tender sinuses LUNGS: Breath sounds equal, clear to auscultation bilaterally HEART: Regular rate and rhythm, S1, S2 without murmur. ABDOMEN: Soft, nontender, nondistended, normoactive bowel sounds EXTREMITIES: 2+ pulses, warm, well-perfused, no edema. NEUROLOGICAL: AAO x3, Normal tone and muscle strength, no facial droop, no lateralizing signs. Normal speech, normal gait. LABS Laboratory Last Values WBC 4.5 K/mm3 (4.0-10.0) D 12/22/17 06:20 RBC 3.87 M/mm3 (3.60-5.2) 12/22/17 06:20 Hgb 11.5 GM/dL (10.7-15.3) D 12/22/17 06:20 Hct 34.2 % (32.4-45.2) 12/22/17 06:20 MCV 88.4 fl (80-96) 12/22/17 06:20 MCH 29.7 pg (25.7-33.7) 12/22/17 06:20 MCHC 33.6 g/dl (32.0-36.0) 12/22/17 06:20 RDW 12.1 % (11.6-15.6) 12/22/17 06:20 Plt Count 186 K/MM3 (134-434) 12/22/17 06:20 MPV 9.0 fl (7.5-11.1) 12/22/17 06:20 Neutrophils % 60.5 % (42.8-82.8) 12/21/17 16:00 Lymphocytes % 27.8 % (8-40) D 12/21/17 16:00 Monocytes % 9.9 % (3.8-10.2) 12/21/17 16:00 Eosinophils % 1.1 % (0-4.5) D 12/21/17 16:00 Basophils % 0.7 % (0-2.0) 12/21/17 16:00 Nucleated RBC % 0 % (0-0) 12/21/17 16:00 ESR 16 mm/hr (0-20) 12/21/17 16:00 Sodium 140 mmol/L (136-145) 12/22/17 07:10 Potassium 4.0 mmol/L (3.5-5.1) 12/22/17 07:10 Chloride 108 mmol/L (98-107) H 12/22/17 07:10 Carbon Dioxide 27 mmol/L (21-32) 12/22/17 07:10 Anion Gap 5 (8-16) L 12/22/17 07:10 BUN 5 mg/dL (7-18) L 12/22/17 07:10 Creatinine 0.7 mg/dL (0.55-1.02) 12/22/17 07:10 Creat Clearance w eGFR > 60 (>60) 12/21/17 16:00 Random Glucose 95 mg/dL (74-106) 12/22/17 07:10 Calcium 7.9 mg/dL (8.5-10.1) L 12/22/17 07:10 Phosphorus 3.4 mg/dL (2.5-4.9) 12/22/17 07:10 Magnesium 2.3 mg/dL (1.8-2.4) 12/22/17 07:10 Total Bilirubin 0.5 mg/dL (0.2-1.0) D 12/21/17 16:00 AST 13 U/L (15-37) L 12/21/17 16:00 ALT 18 U/L (12-78) 12/21/17 16:00 Alkaline Phosphatase 54 U/L (45-117) 12/21/17 16:00 Total Protein 7.2 g/dl (6.4-8.2) 12/21/17 16:00 Albumin 3.3 g/dl (3.4-5.0) L 12/21/17 16:00 Urine HCG, Qual Negative 12/21/17 14:59 Opiates Screen Negative ng/ml (HNKBBQ=904) 12/21/17 19:30 Methadone Screen Negative ng/ml (FRXRKR=882) 12/21/17 19:30 Barbiturate Screen Negative ng/ml (WFKHHB=773) 12/21/17 19:30 Phencyclidine Screen Negative ng/ml (CUTOFF=25) 12/21/17 19:30 Ur Amphetamines Screen Negative ng/ml (OQWPVD=593) 12/21/17 19:30 MDMA (Ecstasy) Screen Negative ng/ml (EDUZFQ=221) 12/21/17 19:30 Benzodiazepines Screen Negative ng/ml (JMHQVP=802) 12/21/17 19:30 Cocaine Screen Negative ng/ml (WYHVRN=932) 12/21/17 19:30 U Marijuana (THC) Screen Positive ng/ml (CUTOFF=50) 12/21/17 19:30 Alcohol, Quantitative < 5.0 mg/dL (0.0-5.0) 12/21/17 16:00 CT orbit 12/22/17: suggested possible R sided cavernous sinus thrombosis, small amount of fluid in ethmoid air cells, mild R maxillary and minimal R sphenoid mucosal thickening seen. MRI orbit/brain 12/23/17: No evidence of cavernous sinus thrombosis. Possible sinusitis HOSPITAL COURSE: Date of Admission:12/21/17 Date of Discharge: 12/23/17 Prehospital course: 42 year old female with no significant PMHx presents to the hospital for R sided facial pain, R eye pain and headache. She reports that she hit her R side of the head after a minor fall 3 weeks ago on November 30 where she hit her R side. She denies any subsequent pain until December 17, when she was driving her van and began to feel 7/10 pain in her R pentecostal and R orbit. She states that the pain progressed to involve pain when she moved her R eye as well as swelling. She went to [facility] ER the very first day and had a CT head which was negative and patient was discharged only on pain medications. Her pain continued and she noticed a R eyelid droop. Hospital course: Patient had R eye lid swelling and some pain with movement of the eye but no limitation of eye movement and no change in vision. CT head was negative for hemorrhage or acute pathology, but suggested possible cavernous sinus thrombosis. Pt had no symptoms of sinusitis or tender sinuses although there was documentation of likely sinusitis on imaging. Neurology was consulted and after D/W Dr. Vasquez-per Dr Vasquez- trauma of 3 weeks earlier is likely unrelated to the headache. He thinks the delfina-cranial headache is more likely to be a migraine for which she should follow as an outpatient. MRI brain and orbit showed no evidence of cavernous sinus thrombosis or acute pathology. With improvement in the headache, Pt was discharged home to follow up with neurologist as an outpatient if headaches persist. Minutes to complete discharge: 40 Discharge Summary Reason For Visit: CELLULITIS/HEADACHE Current Active Problems Headache (Acute) Condition: Stable - Instructions Diet, Activity, Other Instructions: You came in with pain in your Right eye You got a CT head that did not show any acute pathology You got an MRI of the brain and eye bones that did not show any major problems We discussed your case with the neurologist Follow up with the neurologist as an outpatient if your headaches persists We are discharging you home Follow up with your primary care physician within a week If you think your symptoms are getting worse, with increasing eye pain, fever or inability to move the eye go to the nearest emergency room Referrals: René Hood MD [Primary Care Provider] - 1 Week Franck Vasquez MD [Staff Physician] - 1 Week Disposition: HOME - Home Medications Comprehensive Discharge Medication List: Ambulatory Orders Ibuprofen [Motrin -] 600 mg PO TID PRN 06/23/17 This patient is new to me today: No Emergency Visit: Yes ED Registration Date: 12/21/17 Care time: The patient presented to the Emergency Department on the above date and was hospitalized for further evaluation of their emergent condition. Critical Care patient: No - Discharge Referral Referred to [facility] Med P.C.: No
--- NOTE | 2017-12-23 13:35 | PN ---
Teaching Attending Note Name of Resident: Joy Agarwal ATTENDING PHYSICIAN STATEMENT I saw and evaluated the patient. I reviewed the resident's note and discussed the case with the resident. I agree with the resident's findings and plan as documented. SUBJECTIVE:states FLOREZ persists but more mild now. no pain on eye movement. denies Cp, SOB, fever, chills, N/v/C/D OBJECTIVE: Last Vital Signs Temp Pulse Resp BP Pulse Ox 98.1 F 62 17 97/60 100 12/23/17 07:39 12/23/17 07:39 12/23/17 09:00 12/23/17 07:39 12/23/17 09:00 General NAD HEENT R eye with no swelling or ptosis noted. EOMI, PERRL, no nystagmus. ASSESSMENT AND PLAN: 42yo F wtih no PMH who presented to the ER with R sided head ache and eye pain after striking her head 1. R sided FLOREZ- initial Head CT showing concern for R cavernous sinus thrombosis. MRI/MRA was negative. FLOREZ improved. no swelling or pain on eye movment. pt can f/u with neuro as outpatient if FLOREZ persists. will need MRI/MRA to further evaluate. low suspicion given clinical presentation. f/u neuro consult 2. Hypokalemia- resolved 3. DVT ppx- EAM 4. d/c home
== END 2017-12-23 12:45 | disposition home or self-care (01) ==
LOC: JER 13:26 → JERBED 19:36 → J6S 12-22 18:55
PROVIDERS: ADMIT Internal Medicine; ATTEND Internal Medicine
PROC: 3E033NZ Introduction of Analgesics, Hypnotics, Sedatives into Peripheral Vein, Percutaneous Approach (ICD-10-PCS; principal; 2017-12-21)
PROC: 3E0337Z Introduction of Electrolytic and Water Balance Substance into Peripheral Vein, Percutaneous Approach (ICD-10-PCS; 2017-12-21)
DX: R51 Headache (principal); E87.6 Hypokalemia; H57.11 Ocular pain, right eye
CPT/HCPCS: 36415; 70450-TC; 70481-TC; 70542-TC; 70552-TC; 80048; 80053; 80307; 83735; 84100; 84703; 85025; 85027; 85651; 87040; 99284-25; C1887; G0378; J0131; J7030